=== PATIENT | female | born 1990 | race African-American/Black ===

== ENCOUNTER 2021-10-05 04:01 | Inpatient (IN) | payer BC ==
[2021-10-05 04:40] VITALS: BMI 23.0
[2021-10-05] MEDS ORDERED: Misoprostol 200 MCG TAB PR PRN (06:18)
[2021-10-05] MEDS ORDERED: Ondansetron PF 4 MG/2 ML Vial IVP PRN ×3 (06:18→17:11)
[2021-10-05] MEDS ORDERED: hydrALAZINE 20 MG/ML VIAL SLOW IVP PRN ×2 (06:18→17:11)
[2021-10-05] MEDS ORDERED: Promethazine HCl 25 MG/ML VIAL IM PRN ×2 (06:18→10:47)
[2021-10-05] MEDS ORDERED: Lidocaine 1% (PF) 30 ML VIAL SC PRN (06:18)
[2021-10-05] MEDS ORDERED: Diphenoxylate HCl/Atropine Tablet PO PRN (06:18)
[2021-10-05] MEDS ORDERED: Butorphanol Tartrate 1 MG/ML VIAL SLOW IVP PRN (06:18)
[2021-10-05] MEDS ORDERED: Carboprost 250 MCG/ML AMP IM PRN (06:18)
[2021-10-05] MEDS ORDERED: Methylergonovine 0.2 MG/ML VIAL IM PRN (06:18)
[2021-10-05] MEDS ORDERED: NS w/ Oxytocin 30 units 500 ML IV SCH ×3 (06:30→17:11)
[2021-10-05] MEDS ORDERED: Penicillin G Potassium 5 MILL.UNITS in Sodium Chloride 0.9% 100 ML IVPB SCH (06:30)
[2021-10-05 08:12] LABS: Hemoglobin 13.9 g/dL (12.0-15.5); Mean Corpuscular HGB CONC 32.7 g/dL (32.0-36.0); Mean Corpuscular Volume 97.9 fl (81.6-98.3); Mean Platelet Volume 10.9 fl (7.4-10.4); Platelet Count 304 10x3/uL (150-450); RBC Distribution Width 15.2 % (11.5-14.5); Red Blood Cell (RBC) Count 4.34 10x6/uL (3.90-5.03); White Blood Cell (WBC) Count 13.9 10x3/uL (3.5-10.5)
[2021-10-05 08:43] LABS: Hep B Surf Ag Non-Reactive S/CO (NonReactive)
[2021-10-05 08:44] LABS: Syphilis Antibody Nonreactive (Nonreactive); Syphilis Antibody Index 0.06 S/CO (<1.00 Non-Reactive)
[2021-10-05 08:50] LABS: HBSAg Index 0.14 S/CO (0-0.99)
[2021-10-05] MEDS ORDERED: Fentanyl 2 mcg/Bup 0.1% Cadd 100 ML ONE (10:26)
[2021-10-05] MEDS ORDERED: Penicillin G 2.5 MILL.units 2.5 MILL.UNITS in Premix Bag 1 BAG IVPB SCH (10:30)
[2021-10-05] MEDS ORDERED: Hydrocerin (Eucerin) Cream 120 gm Jar TOP PRN (10:47)
[2021-10-05] MEDS ORDERED: Lactated Ringer's 500 ML IV PRN (10:47)
[2021-10-05] MEDS ORDERED: Acetaminophen 325 MG TAB PO PRN (10:47)
[2021-10-05] MEDS ORDERED: diphenhydrAMINE 50 MG/ML VIAL IVP PRN (10:47)
[2021-10-05] MEDS ORDERED: Naloxone HCl 0.4 mg/ml Vial IVP PRN ×2 (10:47)
[2021-10-05] MEDS ORDERED: ePHEDrine Sulfate 50 MG/10 ML VIAL SLOW IVP PRN (10:47)
[2021-10-05] MEDS ORDERED: Communication Order-Pharmacy FS SCH (11:00)
[2021-10-05] MEDS ORDERED: Fentanyl 2 mcg/Bupivacaine 0.1% Cassette 100 ML EPIDURAL SCH (11:00)
[2021-10-05] MEDS ORDERED: Ferrous Sulfate 325 MG TAB PO SCH ×2 (17:11→17:45)
[2021-10-05] MEDS ORDERED: HYDROcodone/Acetaminophen 5/325 mg Tablet PO PRN ×2 (17:11)
[2021-10-05] MEDS ORDERED: diphenhydrAMINE 25 MG CAP PO PRN (17:11)
[2021-10-05] MEDS ORDERED: Bisacodyl 10 MG SUPP PR PRN (17:11)
[2021-10-05] MEDS ORDERED: Milk Of Magnesia 30 ML UDCUP PO PRN (17:11)
[2021-10-05] MEDS ORDERED: Boostrix 0.5 ML (Tdap) VIAL IM ONE (17:11)
[2021-10-05] MEDS ORDERED: Benzocaine-Menthol 82.5 ML CAN TOP PRN (17:11)
[2021-10-05] MEDS ORDERED: Preparation H Ointment 28 GM TUBE PR PRN (17:11)
[2021-10-05] MEDS ORDERED: Lanolin Ointment 7 GM TUBE TOP PRN (17:11)
[2021-10-05] MEDS: Docusate 100 MG CAP PO SCH (21:29)
[2021-10-06] MEDS: Ibuprofen 800 MG TAB PO SCH ×4 (05:18→21:22)
[2021-10-06] MEDS: Docusate 100 MG CAP PO SCH ×2 (08:46→21:22)
[2021-10-06] MEDS: Prenatal Vitamin 1 TAB PO SCH ×2 (08:46→08:48)
[2021-10-06] MEDS: Ferrous Sulfate 325 MG TAB PO SCH ×2 (08:47→16:38)
[2021-10-06] MEDS ORDERED: Witch Hazel-Glycerin 1 EACH JAR TOP PRN (13:48)
[2021-10-06] MEDS ORDERED: Preparation H Ointment 28 GM TUBE TOP PRN (13:49)
[2021-10-07] MEDS: Ibuprofen 800 MG TAB PO SCH (05:56)
[2021-10-07] MEDS: Ferrous Sulfate 325 MG TAB PO SCH (07:04)
[2021-10-07] MEDS: Docusate 100 MG CAP PO SCH (08:07)
[2021-10-07] MEDS: Prenatal Vitamin 1 TAB PO SCH (08:07)
[2021-10-07 08:11] VITALS: BP 113/68; TEMP 97.9
== END 2021-10-07 12:40 | disposition home or self-care (01) | DRG 807 ==
LOC: CSHLD/OP 04:01 → CSHLD 09:58 → CSHPP 17:20
PROVIDERS: ADMIT Obstetrics & Gynecology; ATTEND Obstetrics & Gynecology
PROC: 10E0XZZ Delivery of Products of Conception, External Approach (ICD-10-PCS; principal; 2021-10-05)
PROC: 10907ZC Drainage of Amniotic Fluid, Therapeutic from Products of Conception, Via Natural or Artificial Opening (ICD-10-PCS; 2021-10-05)
PROC: 0HQ9XZZ Repair Perineum Skin, External Approach (ICD-10-PCS; 2021-10-05)
DX: O70.0 First degree perineal laceration during delivery (principal); Z37.0 Single live birth; Z3A.39 39 weeks gestation of pregnancy
CPT/HCPCS: 36415; 85027; 86780; 86850; 86900; 86901; 87340

== ENCOUNTER 2023-05-11 01:30 | Emergency (ER) | payer BC | END 2023-05-11 06:01 | disposition home or self-care (01) | LOC: CSHERS 01:30 | DX: H92.02 Otalgia, left ear (principal) | CPT/HCPCS: 99282 ==